=== PATIENT | female | born 1980 | race Two or more races ===

== ENCOUNTER 2022-04-09 12:49 | Inpatient (IN) | payer MEDICAID ==
[~2022-04-09] VITALS: Ht 165.1 cm; Wt 155.6 kg
[2022-04-09] MEDS ORDERED: FERR325T27 PO (14:07)
[2022-04-09] MEDS ORDERED: LEVO200 PO (14:07)
[2022-04-09 14:24] LABS: BASOPHILS % (AUTO) 0.7 % (0.0-2.0); EOSINOPHILS % (AUTO) 0.4 % (1.0-6.0); HEMATOCRIT 30.3 % (36-46); HEMOGLOBIN 9.1 g/dL (12.0-16.0); LYMPHOCYTES # (AUTO) 1.7 K/uL (1.0-4.8); LYMPHOCYTES % (AUTO) 20.8 % (22.0-44.0); MEAN CORPUSCULAR HEMOGLOBIN 18.8 pg (26.0-34.0); MEAN CORPUSCULAR VOLUME 63 fL (80-100); MONOCYTES # (AUTO) 0.5 K/uL (0.1-1.0); MONOCYTES % (AUTO) 5.9 % (2.0-9.0); NEUTROPHILS % (AUTO) 72.2 % (40.0-70.0); PLATELET COUNT (AUTO) 415 K/uL (150-450); RED BLOOD CELL COUNT(AUTO) 4.83 MIL/uL (4.00-5.20)
[2022-04-09 14:39] LABS: COVID AG,FIA SOURCE NASOPHARYNGEAL
[2022-04-09] MEDS ORDERED: ACETAMINOPHEN 500 MG TABLET PO ONE (15:15)
[2022-04-09] MEDS ORDERED: HALOPERIDOL 5 MG TABLET PO PRN (15:30)
[2022-04-09] MEDS ORDERED: ZOLPIDEM TARTRATE 10 MG TABLET PO PRN (15:30)
[2022-04-09 15:43] LABS: ANION GAP 12 mmol/L (8-16); CALCIUM, TOTAL 8.9 mg/dL (8.8-10.5); CARBON DIOXIDE 25 mmol/L (22-29); CHLORIDE 103 mmol/L (98-107); CREATININE 0.81 mg/dL (0.60-1.30); GLUCOSE,RANDOM 102 mg/dL (70-110); POTASSIUM 3.3 mmol/L (3.5-5.1); SODIUM SERUM 140 mmol/L (136-145); UREA NITROGEN, BLOOD 13 mg/dL (7-18)
[2022-04-09 15:46] LABS: GLOMERULAR FILTR. RATE CALC > 60 mL/min (>60)
[2022-04-09 15:49] LABS: ALANINE AMINOTRANSFERASE 31 U/L (12-78); ALBUMIN 3.6 g/dL (3.4-5.0); ALKALINE PHOSPHATASE 96 U/L (46-116); ASPARTATE AMINOTRANSFERASE 31 U/L (15-37); BILIRUBIN,TOTAL 0.4 mg/dL (0.1-1.0); TOTAL PROTEIN, SERUM 8.5 g/dL (6.4-8.2)
[2022-04-09 16:05] LABS: HCG,QUANTITATIVE 1 mIU/mL (0-6)
[2022-04-09] MEDS ORDERED: POTASSIUM CHLORIDE 10% 40 MEQ/30 ML LIQUID UDCUP PO ONE (16:15)
[2022-04-09 19:58] VITALS: BP 149/79
[2022-04-09 20:37] VITALS: BP 149/79
[2022-04-10 08:15] VITALS: BP 126/66
[2022-04-10] MEDS ORDERED: ONDANSETRON HCL 4 MG TABLET PO PRN (14:30)
[2022-04-10] MEDS ORDERED: ALBUTEROL SULFATE HFA 90 MCG/PUFF 8 GM INHALER IH PRN (14:30)
[2022-04-10] MEDS ORDERED: LOPERAMIDE HCL 2 MG CAPSULE PO PRN (14:30)
[2022-04-10] MEDS ORDERED: OMEPRAZOLE 20 MG CAPSULE PO PRN (14:30)
[2022-04-10] MEDS ORDERED: MAGNESIUM HYDROXIDE SUSPENSION 30 ML UDCUP PO PRN (14:30)
[2022-04-10] MEDS ORDERED: MAG HYDROX/AL HYDROX/SIMETH ES 30 ML SUSPENSION UDCUP PO PRN (14:30)
[2022-04-10] MEDS ORDERED: CloNIDine HCL 0.1 MG TABLET PO PRN (14:30)
[2022-04-10] MEDS ORDERED: BENZOCAINE/MENTHOL LOZENGE PO PRN (14:30)
[2022-04-10] MEDS ORDERED: DOCUSATE SODIUM 100 MG CAPSULE PO PRN (14:30)
[2022-04-10] MEDS ORDERED: BACITRACIN 28 GM OINTMENT TP PRN (14:30)
[2022-04-10] MEDS ORDERED: PETROLATUM,WHITE 28 GM JELLY TP PRN (14:30)
[2022-04-10] MEDS: ACETAMINOPHEN 325 MG TABLET PO PRN (19:21)
[2022-04-10 20:27] VITALS: BP 124/64
[2022-04-11] MEDS: LORazepam 2 MG TABLET PO PRN (00:29)
[2022-04-11 07:29] LABS: THYROID STIMULATING HORMONE 0.63 uIU/mL (0.36-3.74)
[2022-04-11 07:30] LABS: POTASSIUM 3.8 mmol/L (3.5-5.1)
[2022-04-11 08:33] VITALS: BP 120/64
[2022-04-11] MEDS: RisperiDONE 3 MG TABLET PO SCH (20:20)
[2022-04-11 20:21] VITALS: BP 121/89
[2022-04-11] MEDS: ACETAMINOPHEN 325 MG TABLET PO PRN (20:22)
[2022-04-12] MEDS: LEVOTHYROXINE SODIUM 200 MCG TABLET PO SCH (06:47)
[2022-04-12 08:52] VITALS: BP 105/68
[2022-04-12] MEDS: ACETAMINOPHEN 325 MG TABLET PO PRN (09:29)
[2022-04-12] MEDS: RisperiDONE 3 MG TABLET PO SCH ×2 (09:29→20:25)
[2022-04-12] MEDS: IBUPROFEN 600 MG TABLET PO PRN (16:22)
[2022-04-12 20:07] VITALS: BP 126/73
[2022-04-12] MEDS: LORazepam 2 MG TABLET PO PRN (20:25)
[2022-04-13] MEDS: LEVOTHYROXINE SODIUM 200 MCG TABLET PO SCH (06:31)
[2022-04-13 08:46] VITALS: BP 116/73
[2022-04-13] MEDS: RisperiDONE 3 MG TABLET PO SCH ×2 (09:13→20:34)
[2022-04-13 18:09] VITALS: BP_SYST 116; BP_DIAS 68; BP_DIAS 73
[2022-04-13] MEDS: IBUPROFEN 600 MG TABLET PO PRN (18:19)
[2022-04-13 20:03] VITALS: BP 131/65
[2022-04-13] MEDS ORDERED: LamoTRIgine 100 MG TABLET PO SCH (21:00)
[2022-04-14] MEDS: LEVOTHYROXINE SODIUM 200 MCG TABLET PO SCH (05:50)
[2022-04-14 08:18] VITALS: BP 122/76
[2022-04-14 08:22] LABS: GLUCOMETER DEV NAME(LOC) POC.BV
[2022-04-14] MEDS: RisperiDONE 3 MG TABLET PO SCH (09:34)
[2022-04-14] MEDS ORDERED: RISP3TAB35 PO (12:53)
[2022-04-14] MEDS ORDERED: LAMO100 PO (12:55)
== END 2022-04-14 14:50 | disposition home or self-care (01) | DRG 750 ==
LOC: EMS 12:52 → B2S 15:03
PROVIDERS: ADMIT Psychiatry & Neurology Psychiatry; ATTEND Psychiatry & Neurology Psychiatry
DX: F25.1 Schizoaffective disorder, depressive type (principal); Z68.43 Body mass index [BMI] 50.0-59.9, adult; D50.9 Iron deficiency anemia, unspecified; G40.909 Epilepsy, unspecified, not intractable, without status epilepticus; F32.A Depression, unspecified; F41.9 Anxiety disorder, unspecified; G47.00 Insomnia, unspecified; M19.90 Unspecified osteoarthritis, unspecified site; Z20.822 Contact with and (suspected) exposure to COVID-19; E87.6 Hypokalemia; E66.01 Morbid (severe) obesity due to excess calories; S80.11XA Contusion of right lower leg, initial encounter; X58.XXXA Exposure to other specified factors, initial encounter; Y93.89 Activity, other specified; Z85.850 Personal history of malignant neoplasm of thyroid; Y92.89 Other specified places as the place of occurrence of the external cause; Y99.8 Other external cause status
CPT/HCPCS: 80053; 80061; 84132; 84443; 84702; 85025; 99285; G0480